=== PATIENT | female | born 1995 | race Caucasian/White ===

== ENCOUNTER → 2017-06-27 | Outpatient (CLI) | payer BC ==
--- NOTE | 2017-06-27 17:52 | US ---
EXAMINATION TYPE: US renal transplant w dop DATE OF EXAM: 06/27/2017 COMPARISON: NONE CLINICAL HISTORY: Low back pain M54.5. Lower back pain x 2 days, renal transplant 3 years ago EXAM PERFORMED: Grayscale on [place] kidneys and Doppler duplex and Grayscale imaging of the transplan juan kidney. EXAM MEASUREMENTS: [place] Right Kidney: 6.8 x 3.6 x 2.7cm [place] Left Kidney: 7.0 x 3.6 x 3.0cm Transplant Kidney: 12.0 x 5.2 x 5.8cm Location of transplanted kidney: left pelvis ANATOMY: [place] Right Kidney: atrophic, no hydro or renal masses seen at this time, inferior pole obscured by overlying bowel gas [place] Left Kidney: atrophic, no hydro or renal masses seen at this time, limited by rib shadowing Transplant Kidney: good arterial and venous flow seen, small amount of fluid seen in renal pelvis, a ppears to be extending slightly into calyces Bladder: appears wnl Bilateral Jets seen: no jets seen IMPRESSION: Mild fullness of the left renal transplant collecting system. Otherwise unremarkable study.
== END | disposition home or self-care (01) ==
LOC: RADUSWWP 16:53
PROVIDERS: ATTEND Family Medicine
DX: M54.5 Low back pain (principal); Z94.0 Kidney transplant status
CPT/HCPCS: 76776; 93976

== ENCOUNTER 2017-06-28 19:38 | Inpatient (IN) | payer BC ==
[2017-06-28] MEDS ORDERED: SODIUM CHLORIDE 0.9% 500 ML IV STA (20:44)
[2017-06-28] MEDS ORDERED: ACETAMINOPHEN TAB 500 MG TAB PO STA (20:44)
--- NOTE | 2017-06-28 21:10 | ED ---
General Adult HPI <Clark Ramos - Last Filed: 06/28/17 23:00> - General Source: patient, RN notes reviewed Mode of arrival: ambulatory Limitations: no limitations <Igor Cotton - Last Filed: 06/28/17 23:03> - General Chief complaint: Headache Stated complaint: neck pain Time Seen by Provider: 06/28/17 20:34 - History of Present Illness Initial comments: This a 22-year-old female presents emergency Department chief complaint of flank pain, back pain, fever, headache. Patient states that she is concerned that she developed left flank pain yesterday in which she saw her doctor and had lab work and ultrasound of her left kidney. 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 Patient states that was done 3 years ago at [facility]. Patient states that she developed a fever and upper back, neck pain and a headache. Patient states that she has some discomfort when she moves her head forward and back. Patient went of frontal headache at this time she did take Tylenol around 3:00 this afternoon. Patient states that she was prescribed Cipro for infection of her urine. Patient states that she does have mild sore throat but denies any ear pain, sinus congestion, cough or chest congestion. (Igor Cotton ) - Related Data Home Medications Medication Instructions Recorded Confirmed Ciprofloxacin HCl [Cipro] 500 mg PO Q12HR 06/28/17 06/28/17 Magnesium Oxide [Mag-Ox] 250 mg PO DAILY 06/28/17 06/28/17 Mycophenolate Mofetil [Cellcept] 750 mg PO BID 06/28/17 06/28/17 Tacrolimus [Prograf] 0.5 mg PO BID@0900,2100 06/28/17 06/28/17 Tacrolimus [Prograf] 2 mg PO BID@0900,2100 06/28/17 06/28/17 predniSONE 5 mg PO DAILY 06/28/17 06/28/17 Allergies Allergy/AdvReac Type Severity Reaction Status Date / Time cefprozil [From Cefzil] Allergy Rash/Hives Verified 06/28/17 20:33 Penicillins Allergy Rash/Hives Verified 06/28/17 20:33 Review of Systems ROS Other: All systems not noted in ROS Statement are negative. <lCark Ramos - Last Filed: 06/28/17 23:00> ROS Other: All systems not noted in ROS Statement are negative. <Igor Cotton - Last Filed: 06/28/17 23:03> ROS Statement: Those systems with pertinent positive or pertinent negative responses have been documented in the HPI. Past Medical History Additional Past Medical History / Comment(s): kidney transplant History of Any Multi-Drug Resistant Organisms: None Reported Additional Past Surgical History / Comment(s): Kidney transplant Past Psychological History: No Psychological Hx Reported Smoking Status: Never smoker Past Alcohol Use History: Occasional Past Drug Use History: None Reported <Igor Cotton - Last Filed: 06/28/17 23:03> General Exam Limitations: no limitations General appearance: alert, in no apparent distress Head exam: Present: atraumatic, normocephalic, normal inspection Eye exam: Present: normal appearance, PERRL, EOMI. Absent: scleral icterus, conjunctival injection, periorbital swelling ENT exam: Present: mucous membranes moist, TM's normal bilaterally, normal external ear exam. Absent: normal oropharynx (Mild erythema posterior pharynx and exudate) Neck exam: Present: normal inspection, full ROM. Absent: tenderness, meningismus, lymphadenopathy Respiratory exam: Present: normal lung sounds bilaterally. Absent: respiratory distress, wheezes, rales, rhonchi, stridor Cardiovascular Exam: Present: normal rhythm, tachycardia, normal heart sounds. Absent: systolic murmur, diastolic murmur, rubs, gallop, clicks GI/Abdominal exam: Present: soft, normal bowel sounds. Absent: distended, tenderness, guarding, rebound, rigid Back exam: Present: CVA tenderness (L) Neurological exam: Present: alert, oriented X3, CN II-XII intact Skin exam: Present: warm, dry, intact, normal color. Absent: rash <Igor Cotton - Last Filed: 06/28/17 23:03> Course <Clark Ramos - Last Filed: 06/28/17 23:00> <Igor Cotton - Last Filed: 06/28/17 23:03> Vital Signs 06/28/17 06/28/17 06/28/17 19:47 21:25 21:51 Temperature 101.5 F H 103.4 F H Pulse Rate 130 H 122 H 119 H Respiratory 20 18 16 Rate Blood Pressure 94/57 109/67 109/62 O2 Sat by Pulse 99 99 95 Oximetry - Reevaluation(s) Reevaluation #1: 06/28/17 23:00 Patient does meet sepsis criteria with urinary tract infection. Diagnosed at 2300. Patient will be started on Levaquin secondary to penicillin and cephalosporin ALLERGY. Case discussed with practitioner Miguelina, covering for Dr. bain who will admit for Dr. He. She is okay with keeping this transplant patient here. Nephrology will be consulted. (Clark Ramos) Medical Decision Making - Lab Data Result diagrams: 06/28/17 22:15 06/28/17 22:15 <Clark Ramos - Last Filed: 06/28/17 23:00> - Lab Data Result diagrams: 06/28/17 22:15 06/28/17 22:15 <Igor Cotton - Last Filed: 06/28/17 23:03> - Lab Data Lab Results 06/28/17 06/28/17 06/28/17 Range/Units 21:20 21:20 21:56 WBC (3.8-10.6) k/uL RBC (3.80-5.40) m/uL Hgb (11.4-16.0) gm/dL Hct (34.0-46.0) % MCV (80.0-100.0) fL MCH (25.0-35.0) pg MCHC (31.0-37.0) g/dL RDW (11.5-15.5) % Plt Count (150-450) k/uL Neutrophils % % Lymphocytes % % Monocytes % % Eosinophils % % Basophils % % Neutrophils # (1.3-7.7) k/uL Lymphocytes # (1.0-4.8) k/uL Monocytes # (0-1.0) k/uL Eosinophils # (0-0.7) k/uL Basophils # (0-0.2) k/uL Sodium (137-145) mmol/L Potassium (3.5-5.1) mmol/L Chloride (98-107) mmol/L Carbon Dioxide (22-30) mmol/L Anion Gap mmol/L BUN (7-17) mg/dL Creatinine (0.52-1.04) mg/dL Est GFR (MDRD) Af Amer (>60 ml/min/1.73 sqM) Est GFR (MDRD) Non-Af (>60 ml/min/1.73 sqM) Glucose (74-99) mg/dL Plasma Lactic Acid Connor 0.9 (0.7-2.0) mmol/L Calcium (8.4-10.2) mg/dL Total Bilirubin (0.2-1.3) mg/dL AST (14-36) U/L ALT (9-52) U/L Alkaline Phosphatase (38-126) U/L Total Protein (6.3-8.2) g/dL Albumin (3.5-5.0) g/dL Urine Color Yellow Urine Appearance Cloudy H (Clear) Urine pH 6.0 (5.0-8.0) Ur Specific [place] 1.021 (1.001-1.035) Urine Protein 2+ H (Negative) Urine Glucose (UA) Negative (Negative) Urine Ketones 2+ H (Negative) Urine Blood Small H (Negative) Urine Nitrite Negative (Negative) Urine Bilirubin Negative (Negative) Urine Urobilinogen <2.0 (<2.0) mg/dL Ur Leukocyte Esterase Moderate H (Negative) Urine RBC 3 (0-5) /hpf Urine WBC 19 H (0-5) /hpf Ur Squamous Epith Cells 2 (0-4) /hpf Urine Bacteria Rare H (None) /hpf Hyaline Casts 1 (0-2) /lpf Urine Mucus Rare H (None) /hpf Urine HCG, Qual (Not Detectd) Heterophile Antibody (Negative) Group A Strep Rapid Negative (Negative) 06/28/17 06/28/17 06/28/17 Range/Units 21:56 22:15 22:15 WBC 17.1 H (3.8-10.6) k/uL RBC 4.51 (3.80-5.40) m/uL Hgb 12.6 (11.4-16.0) gm/dL Hct 38.7 (34.0-46.0) % MCV 86.0 (80.0-100.0) fL MCH 27.9 (25.0-35.0) pg MCHC 32.4 (31.0-37.0) g/dL RDW 13.9 (11.5-15.5) % Plt Count 177 (150-450) k/uL Neutrophils % 90 % Lymphocytes % 3 % Monocytes % 6 % Eosinophils % 0 % Basophils % 0 % Neutrophils # 15.3 H (1.3-7.7) k/uL Lymphocytes # 0.5 L (1.0-4.8) k/uL Monocytes # 1.0 (0-1.0) k/uL Eosinophils # 0.1 (0-0.7) k/uL Basophils # 0.0 (0-0.2) k/uL Sodium 132 L (137-145) mmol/L Potassium 4.1 (3.5-5.1) mmol/L Chloride 103 (98-107) mmol/L Carbon Dioxide 20 L (22-30) mmol/L Anion Gap 9 mmol/L BUN 18 H (7-17) mg/dL Creatinine 1.30 H (0.52-1.04) mg/dL Est GFR (MDRD) Af Amer >60 (>60 ml/min/1.73 sqM) Est GFR (MDRD) Non-Af 50 (>60 ml/min/1.73 sqM) Glucose 123 H (74-99) mg/dL Plasma Lactic Acid Connor (0.7-2.0) mmol/L Calcium 8.7 (8.4-10.2) mg/dL Total Bilirubin 0.8 (0.2-1.3) mg/dL AST 13 L (14-36) U/L ALT 29 (9-52) U/L Alkaline Phosphatase 54 (38-126) U/L Total Protein 5.6 L (6.3-8.2) g/dL Albumin 3.4 L (3.5-5.0) g/dL Urine Color Urine Appearance (Clear) Urine pH (5.0-8.0) Ur Specific [place] (1.001-1.035) Urine Protein (Negative) Urine Glucose (UA) (Negative) Urine Ketones (Negative) Urine Blood (Negative) Urine Nitrite (Negative) Urine Bilirubin (Negative) Urine Urobilinogen (<2.0) mg/dL Ur Leukocyte Esterase (Negative) Urine RBC (0-5) /hpf Urine WBC (0-5) /hpf Ur Squamous Epith Cells (0-4) /hpf Urine Bacteria (None) /hpf Hyaline Casts (0-2) /lpf Urine Mucus (None) /hpf Urine HCG, Qual Not Detected (Not Detectd) Heterophile Antibody (Negative) Group A Strep Rapid (Negative) 06/28/17 Range/Units 22:15 WBC (3.8-10.6) k/uL RBC (3.80-5.40) m/uL Hgb (11.4-16.0) gm/dL Hct (34.0-46.0) % MCV (80.0-100.0) fL MCH (25.0-35.0) pg MCHC (31.0-37.0) g/dL RDW (11.5-15.5) % Plt Count (150-450) k/uL Neutrophils % % Lymphocytes % % Monocytes % % Eosinophils % % Basophils % % Neutrophils # (1.3-7.7) k/uL Lymphocytes # (1.0-4.8) k/uL Monocytes # (0-1.0) k/uL Eosinophils # (0-0.7) k/uL Basophils # (0-0.2) k/uL Sodium (137-145) mmol/L Potassium (3.5-5.1) mmol/L Chloride (98-107) mmol/L Carbon Dioxide (22-30) mmol/L Anion Gap mmol/L BUN (7-17) mg/dL Creatinine (0.52-1.04) mg/dL Est GFR (MDRD) Af Amer (>60 ml/min/1.73 sqM) Est GFR (MDRD) Non-Af (>60 ml/min/1.73 sqM) Glucose (74-99) mg/dL Plasma Lactic Acid Connor (0.7-2.0) mmol/L Calcium (8.4-10.2) mg/dL Total Bilirubin (0.2-1.3) mg/dL AST (14-36) U/L ALT (9-52) U/L Alkaline Phosphatase (38-126) U/L Total Protein (6.3-8.2) g/dL Albumin (3.5-5.0) g/dL Urine Color Urine Appearance (Clear) Urine pH (5.0-8.0) Ur Specific [place] (1.001-1.035) Urine Protein (Negative) Urine Glucose (UA) (Negative) Urine Ketones (Negative) Urine Blood (Negative) Urine Nitrite (Negative) Urine Bilirubin (Negative) Urine Urobilinogen (<2.0) mg/dL Ur Leukocyte Esterase (Negative) Urine RBC (0-5) /hpf Urine WBC (0-5) /hpf Ur Squamous Epith Cells (0-4) /hpf Urine Bacteria (None) /hpf Hyaline Casts (0-2) /lpf Urine Mucus (None) /hpf Urine HCG, Qual (Not Detectd) Heterophile Antibody Negative (Negative) Group A Strep Rapid (Negative) Disposition <Clark Ramos - Last Filed: 06/28/17 23:00> <Igor Cotton - Last Filed: 06/28/17 23:03> Clinical Impression: Pyelonephritis, Fever, Renal transplant recipient Disposition: ADMITTED IP TO THIS [facility] Condition: Fair Referrals: Jeanette He MD [Primary Care Provider] - 1-2 days
--- NOTE | 2017-06-28 21:46 | XR ---
EXAMINATION TYPE: XR chest 2V DATE OF EXAM: 06/28/2017 COMPARISON: NONE HISTORY: Fever TECHNIQUE: Frontal and lateral views of the chest are obtained. FINDINGS: Heart and mediastinum are normal. Lungs are clear. Diaphragm is normal. Bony thorax appear s normal. IMPRESSION: Normal chest
[2017-06-28 22:17] LABS: Appearance,Urine Cloudy (Clear); Bacteria,Urine Rare /hpf; Bilirubin,Urine Negative (Negative); Glucose,Urine (UA) Negative (Negative); Ketones,Urine 2+ (Negative); Leukocyte Esterase,Urine Moderate (Negative); Mucus,Urine Rare /hpf; Nitrite,Urine Negative (Negative); Particle Count 10121; Protein,Urine 2+ (Negative); RBC,Urine 3 /hpf (0-5); Specific Gravity,Urine 1.021 (1.001-1.035); Squamous Epithelial Cell,Urine 2 /hpf (0-4); UA Billing (MACRO vs. MICRO) MICRO; Urobilinogen,Urine <2.0 mg/dL (<2.0); WBC,Urine 19 /hpf (0-5)
[2017-06-28 22:34] LABS: Basophils % (A) 0 %; CHCM 33.8; Eosinophils # (A) 0.1 k/uL (0-0.7); Eosinophils % (A) 0 %; HCT 38.7 % (34.0-46.0); HDW 2.72; HGB 12.6 gm/dL (11.4-16.0); Luc # (Auto) 0.24; Luc % (Auto) 1; Lymphocytes # (A) 0.5 k/uL (1.0-4.8); Lymphocytes % (A) 3 %; MCH 27.9 pg (25.0-35.0); MCHC 32.4 g/dL (31.0-37.0); Mean Platelet Volume 7.3; Monocytes % (A) 6 %; Neutrophils # (A) 15.3 k/uL (1.3-7.7); Neutrophils % (A) 90 %; RBC 4.51 m/uL (3.80-5.40); RDW 13.9 % (11.5-15.5); WBC 17.1 k/uL (3.8-10.6); WBC (Perox) 17.59
[2017-06-28 22:43] LABS: ALT 29 U/L (9-52); AST 13 U/L (14-36); Alkaline Phosphatase 54 U/L (38-126); Anion Gap 9 mmol/L; Blood Urea Nitrogen 18 mg/dL (7-17); Calcium 8.7 mg/dL (8.4-10.2); Carbon Dioxide 20 mmol/L (22-30); Chloride 103 mmol/L (98-107); Glucose 123 mg/dL (74-99); Non-African American GFR(MDRD) 50 (>60 ml/min/1.73 sqM); Potassium 4.1 mmol/L (3.5-5.1); Sodium 132 mmol/L (137-145); Total Bilirubin 0.8 mg/dL (0.2-1.3); Total Protein 5.6 g/dL (6.3-8.2)
[2017-06-28] MEDS ORDERED: LEVOFLOXACIN 750MG-D5W PMX 750 MG in DEXTROSE/WATER 1 150ML.BAG IVPB STA (23:02)
[2017-06-28] MEDS ORDERED: NALOXONE 0.4 MG/ML 1 ML VIAL IV PRN (23:04)
[2017-06-28] MEDS ORDERED: SODIUM CHLORIDE 0.9% 1,000 ML IV SCH (23:15)
[2017-06-29 01:24] VITALS: BMI 32.3
[2017-06-29] MEDS: ACETAMINOPHEN TAB 325 MG TAB PO PRN ×3 (04:00→19:51)
[2017-06-29] MEDS: ENOXAPARIN 40 MG/0.4 ML SYRINGE SQ SCH (08:56)
[2017-06-29] MEDS: TACROLIMUS 0.5 MG CAP PO SCH ×2 (08:56→19:56)
[2017-06-29] MEDS: TACROLIMUS 1 MG CAP PO SCH ×2 (08:56→19:57)
[2017-06-29] MEDS: MYCOPHENOLATE MOFETIL 250 MG CAP PO SCH ×2 (08:57→19:56)
[2017-06-29] MEDS ORDERED: predniSONE 5 MG TAB PO SCH (09:00)
[2017-06-29] MEDS: MAGNESIUM OXIDE 400 MG TAB PO SCH (11:24)
[2017-06-29] MEDS: SODIUM CHLORIDE 0.9% 1,000 ML IV SCH ×2 (12:47→17:39)
--- NOTE | 2017-06-29 13:11 | CONS ---
REASON FOR CONSULTATION: History of renal transplant. HISTORY OF PRESENT ILLNESS: The patient is a 22-year-old female with history of renal failure secondary to ( ) syndrome status post living unrelated renal transplant in 2013 and transplant was at [facility]. The patient follows at [facility] and with Dr. Cheema out of town. She used to follow with Dr. Bauman ). The patient was admitted to the hospital with complaints of left flank pain. She stated that she may have noticed some discomfort in her kidney too. The patient had some fever. No cough. No chest pains. Ultrasound of the kidney done on 06/27/2017 showed prominent left renal transplant collecting system. No stones were noted. Her UA shows blood protein and WBC of 19. Urine culture currently pending. The patient has been started on Levaquin. PAST MEDICAL HISTORY: Renal failure, good ( ) syndrome. SOCIAL HISTORY: Negative for history of smoking drug abuse or alcohol use. REVIEW OF SYSTEMS: As per HPI. Other systems negative. Medications at home prior to admission include: 1. Prograf. 2. CellCept. 3. Magnesium. 4. Recently the patient was on Cipro. 5. She also takes Prednisone. ALLERGIES: ( ) PENICILLINS. On examination, the patient is currently comfortable, awake, alert and oriented times three. She is not in any acute distress. Temp of 101.9, heart rate 106 per minute, blood pressure 147/72. HEENT: Atraumatic, Normocephalic. PERRLA. JVD is not elevated. Lymph nodes are not palpable. Thyroid is not enlarged. Examination of the heart S1, S2. Examination of the lungs bilateral breath sounds are heard. Abdomen soft, nontender. ( ) is nontender. Examination of the lower extremities shows no edema. CUSTOMER SALES DISTRIBUTOR: Gross intact. Labs show sodium 132, potassium 4.1, serum creatinine 1.3, BUN 18, hemoglobin 12.6, UA shows 2+ protein, 2+ ketones, small blood, WBC 19, urine cultures currently pending. ASSESSMENT: 1. Pyuria rule out urinary tract infection in a transplant patient. There was prominence of the collecting system on the transplant kidney on the ultrasound done on 06/27/2017. The patient states she is feeling better. She is maintained on IV antibiotics which are to continue. We will follow-up on the urine culture. Prograf level will also be ordered. The patient has been on Cipro prior to admission and currently she is on Levaquin. The dose may need to be adjusted for Prograf. We will likely repeat another ultrasound by tomorrow. If there is any further changes, the patient may need further urological evaluation and may need to be transferred to [facility]. 2. Status post living unrelated renal transplant at [facility] in 2013 and maintained on Prograf, CellCept and Prednisone. PLAN: Start IV fluids. May continue Levaquin. Check Prograf level. Follow-up on urine cultures. Thank you for this consultation. I will continue to follow the patient with you during this hospitalization. GINA
--- NOTE | 2017-06-29 14:00 | P.HPIM ---
History of Present Illness H&P Date: 06/29/17 Chief Complaint: Back pain History of present complaint: This is a very pleasant 22-year-old patient, who had a living donor nonrelated kidney transplant at [facility] 3 years ago for Goodpasture's syndrome. Patient follows with our transplant surgeon Dr. Samaniego used to [place]. 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 Denies any other medical conditions. Presents with 2 days of left lower back pain but increasing urinary frequency a fever up to 101 nausea strong-appearing urine admitted for this same. No obvious pain over the transplanted kidney. Appetite had gone down. Sister and aunt are present at the bedside. 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 EYES: Pupils equal. Conjunctiva normal. HEENT: External appearance of nose and ears normal, oral cavity grossly normal. NECK: JVD not raised; masses not palpable. HEART: First and second heart sounds are normal; no edema. LUNGS: Respiratory rate normal; clear to auscultation. ABDOMEN: Soft, nontender over the transplant site, minimal tenderness in the left renal angle, liver spleen not palpable, no masses palpable. LYMPHATICS: No lymph nodes palpable in the axilla and neck. PSYCH: Alert and oriented x3; mood and affect normal. NEUROLOGICAL: Cranial nerves grossly intact; no facial asymmetry, power and sensation grossly intact. Investigations: White count 7.1, he will be drawn 0.6, sodium 132, BUN 18, creatinine 1.30, UA positive Assessment: Acute severe UTI with sepsis present on admission possibly related cystitis -Renal transplantation from underlying Goodpasture's syndrome 3 years ago -Immunosuppressed state from immunosuppressants Plan: -Nephrology was consulted. We'll also consult ID. Home medications are resumed. Care was discussed with the patient. IV fluids and place. We'll give stress doses of steroids in the form of Cortef. Care discussed with the patient and family the bedside. Past Medical History Additional Past Medical History / Comment(s): Goodpasture's Syndrome/ kidney transplant History of Any Multi-Drug Resistant Organisms: None Reported Additional Past Surgical History / Comment(s): Kidney transplant Past Anesthesia/Blood Transfusion Reactions: No Reported Reaction Past Psychological History: No Psychological Hx Reported Smoking Status: Never smoker Past Alcohol Use History: Occasional Past Drug Use History: None Reported - Past Family History Mother Family Medical History: No Reported History Father Family Medical History: Hypertension Medications and Allergies Home Medications Medication Instructions Recorded Confirmed Type Ciprofloxacin HCl [Cipro] 500 mg PO Q12HR 06/28/17 06/28/17 History Magnesium Oxide [Mag-Ox] 250 mg PO DAILY 06/28/17 06/28/17 History Mycophenolate Mofetil [Cellcept] 750 mg PO BID 06/28/17 06/28/17 History Tacrolimus [Prograf] 0.5 mg PO BID@0900,2100 06/28/17 06/28/17 History Tacrolimus [Prograf] 2 mg PO BID@0900,2100 06/28/17 06/28/17 History predniSONE 5 mg PO DAILY 06/28/17 06/28/17 History Allergies Allergy/AdvReac Type Severity Reaction Status Date / Time cefprozil [From Cefzil] Allergy Rash/Hives Verified 06/28/17 20:33 Penicillins Allergy Rash/Hives Verified 06/28/17 20:33 Results CBC & Chem 7: 06/28/17 22:15 06/28/17 22:15
[2017-06-29] MEDS ORDERED: predniSONE 20 MG TAB PO SCH (21:00)
[2017-06-29] MEDS: LEVOFLOXACIN 750MG-D5W PMX 750 MG in DEXTROSE/WATER 1 150ML.BAG IVPB SCH (22:29)
[2017-06-30] MEDS: SODIUM CHLORIDE 0.9% 1,000 ML IV SCH (03:39)
[2017-06-30 06:54] LABS: Basophils % (A) 0 %; CH 28.7; CHCM 33.1; Eosinophils % (A) 0 %; HCT 37.1 % (34.0-46.0); HDW 2.74; HGB 11.9 gm/dL (11.4-16.0); Luc # (Auto) 0.27; Luc % (Auto) 3; Lymphocytes # (A) 0.6 k/uL (1.0-4.8); Lymphocytes % (A) 6 %; MCHC 32.2 g/dL (31.0-37.0); MCV 87.1 fL (80.0-100.0); Mean Platelet Volume 7.8; Monocytes # (A) 0.7 k/uL (0-1.0); Monocytes % (A) 7 %; Neutrophils # (A) 8.4 k/uL (1.3-7.7); Neutrophils % (A) 85 %; RBC 4.26 m/uL (3.80-5.40); RDW 13.9 % (11.5-15.5); WBC (Perox) 10.75
[2017-06-30 07:17] LABS: Anion Gap 6 mmol/L; Blood Urea Nitrogen 11 mg/dL (7-17); Calcium 8.5 mg/dL (8.4-10.2); Carbon Dioxide 24 mmol/L (22-30); Chloride 108 mmol/L (98-107); Glucose 92 mg/dL (74-99); Non-African American GFR(MDRD) >60 (>60 ml/min/1.73 sqM); Potassium 4.4 mmol/L (3.5-5.1); Sodium 138 mmol/L (137-145)
[2017-06-30] MEDS ORDERED: ACETAMINOPHEN TAB 500 MG TAB PO PRN (08:34)
[2017-06-30] MEDS ORDERED: predniSONE 20 MG TAB PO SCH (09:00)
[2017-06-30] MEDS: ENOXAPARIN 40 MG/0.4 ML SYRINGE SQ SCH (09:05)
[2017-06-30] MEDS: MYCOPHENOLATE MOFETIL 250 MG CAP PO SCH ×2 (09:08→20:57)
[2017-06-30] MEDS: TACROLIMUS 0.5 MG CAP PO SCH ×2 (09:08→20:56)
[2017-06-30] MEDS: TACROLIMUS 1 MG CAP PO SCH ×2 (09:08→20:56)
--- NOTE | 2017-06-30 09:27 | PN ---
The patient is seen for follow-up for post transplant care. The patient was admitted to the hospital with fever and left flank pain. She is currently maintained on IV Levaquin for urinary tract infection. The patient has been on Cipro for about three doses prior to admission. Her urine culture has not grown anything yet. However, clinically the patient has improved. On examination blood pressure is 122/78. Heart rate is 100 per minute. She is afebrile. Examination of the heart S1, S2. Examination of the lungs bilateral breath sounds are heard. Abdomen is soft. Nontender. Examination of the lower extremities shows no significant edema. LPN CMA exam grossly intact. Labs shows sodium 130. Potassium 4.4, serum creatinine 1.08. Hemoglobin 11.9. ASSESSMENT: 1. Acute kidney injury, secondary to urinary tract infection currently improved. 2. Status post living unrelated renal transplant for good pasture syndrome in 2013 at [facility] currently maintained on Prograf, CellCept and Prednisone. Prednisone was increased to 40 mg b.i.d. I will decrease the dose to 40 mg daily. Currently the patient is fairly hemodynamically stable. The patient will need rapid taper of her Prednisone as an outpatient. Prograf level has been ordered since the patient has been on the Quinolones. It is pending so far. There was dilation noted in the transplant kidney. A repeat ultrasound was ordered. 3. Urinary tract infection, currently maintained on IV antibiotics. Urine culture does not show any growth thus far as the patient was already on Cipro prior to admission. PLAN: Decrease Prednisone to 40 mg daily. Continue IV fluids. Recommend the patient to stay in the hospital for at least one more day. 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 MTDD
--- NOTE | 2017-06-30 10:19 | US ---
EXAMINATION TYPE: US renal transplant w dop DATE OF EXAM: 06/30/2017 COMPARISON: 06/27/2017 CLINICAL HISTORY: infection. Lower back pain, kidney infection, renal transplant 03/17 EXAM PERFORMED: Grayscale on [place] kidneys and Doppler duplex and Grayscale imaging of the transplan juan kidney. EXAM MEASUREMENTS: [place] Right Kidney: 6.5 x 2.3 x 2.3cm [place] Left Kidney: 6.4 x 2.8 x 2.6cm Transplant Kidney: 12.6 x 5.5 x 5.6cm Location of transplanted kidney: LLQ ANATOMY: [place] Right Kidney: atrophic [place] Left Kidney: atrophic Transplant Kidney: arterial and venous flow documented. fullness to collecting system Bladder: appears wnl Bilateral Jets seen: no Incidental finding: spleen = 13.8cm system with borderline splenomegaly. IMPRESSION: There persists mild fullness to the renal pelvis suggestive of mild hydronephrosis within the renal t ransplant unchanged from previous exam.
[2017-06-30] MEDS: MAGNESIUM OXIDE 400 MG TAB PO SCH (12:25)
--- NOTE | 2017-06-30 16:01 | P.PN ---
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 Presented with 2 days of left lower back pain increasing urinary frequency and a fever up to 101 nausea strong-appearing urine and was admitted for the same. INTERVAL HISTORY: 06/30/2017: Patient seen in follow-up today, sitting up in a recliner at the bedside appears very comfortable, no acute complaints. States her back pain is improved. Levaquin continues. Last febrile episode was at 7:30 PM on 2016. Follow-up ultrasound pending. Tolerating her diet, ambulatory in the room and hallway, last BM 06/29/2017. REVIEW OF SYSTEMS: Done for constitutional ,cardiovascular, GI, pulmonary, with relevant findings as above. CURRENT MEDICATIONS Levofloxacin, CellCept, prednisone, Prograf, PHYSICAL EXAM VITAL SIGNS: Temperature 98.2, pulse 100, respirations 16, blood pressure 122/78, oxygen saturation 98% on room air. GENERAL APPEARANCE: Lying in bed, not in distress. EYES: Pupils equal. Conjunctiva normal. NECK: JVD not raised. Mass not palpable. RESPIRATORY: Respiratory effort normal. Lungs clear to auscultation. CARDIOVASCULAR: First and second sounds normal. No edema. ABDOMEN: Soft. Nontender over the transplant site, minimal tenderness in the left renal angle, Liver and spleen not palpable. No tenderness. No mass palpable. PSYCHIATRY: Alert and oriented x3. Mood and affect normal. INVESTIGATIONS: White blood cell count 10.0, chloride 108, creatinine 1.08 Urine culture: Skin and genital guillermo Throat culture: In process Blood culture: No growth after 24 hours. ASSESSMENT: -Acute severe UTI with sepsis present on admission possibly related cystitis, improving -Renal transplantation from underlying Goodpasture's syndrome 3 years ago -Immunosuppressed state from immunosuppressants PLAN: Patient febrile last night we'll hold patient another day continue Levaquin and see how she appears tomorrow for possible discharge. Discussion had at the bedside with patient and mother and they are in agreement with the plan of care. 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 Barba <Sarath Barba - Last Filed: 06/30/17 17:28> Progress Note - Text Attending note. Date of service-06/30/2017 This patient was seen and examined by me . Discussed the patient with my nurse practitioner Ms. Chung. Admitted with acute UTI and possible cystitis. Did spike a fever yesterday evening. Overall feels better. Decreased urine symptoms. Eating better. On examination: Abdomen-nontender soft Investigations: White count 10, cultures pending Assessment and plan: Acute UTI with sepsis possibly cystitis present admission responding well to antibiotics. Given the fever yesterday evening will watch her 24 hours. Continue with IV Levaquin.
[2017-06-30 21:02] VITALS: RESP 16
[2017-06-30] MEDS: LEVOFLOXACIN 750MG-D5W PMX 750 MG in DEXTROSE/WATER 1 150ML.BAG IVPB SCH (23:07)
[2017-07-01] MEDS: SODIUM CHLORIDE 0.9% 1,000 ML IV SCH (05:50)
[2017-07-01 07:29] LABS: Basophils % (A) 0 %; CH 28.8; CHCM 33.1; Eosinophils % (A) 1 %; HCT 36.1 % (34.0-46.0); HDW 2.76; HGB 11.6 gm/dL (11.4-16.0); Luc # (Auto) 0.21; Luc % (Auto) 3; Lymphocytes # (A) 1.2 k/uL (1.0-4.8); Lymphocytes % (A) 16 %; MCH 28.1 pg (25.0-35.0); MCHC 32.2 g/dL (31.0-37.0); MCV 87.4 fL (80.0-100.0); Mean Platelet Volume 7.9; Monocytes # (A) 0.4 k/uL (0-1.0); Monocytes % (A) 6 %; Neutrophils # (A) 5.7 k/uL (1.3-7.7); Neutrophils % (A) 75 %; RBC 4.13 m/uL (3.80-5.40); RDW 14.1 % (11.5-15.5); WBC 7.6 k/uL (3.8-10.6); WBC (Perox) 8.01
[2017-07-01 07:49] LABS: Anion Gap 9 mmol/L; Blood Urea Nitrogen 12 mg/dL (7-17); Calcium 8.6 mg/dL (8.4-10.2); Carbon Dioxide 21 mmol/L (22-30); Chloride 110 mmol/L (98-107); Glucose 87 mg/dL (74-99); Non-African American GFR(MDRD) >60 (>60 ml/min/1.73 sqM); Potassium 4.2 mmol/L (3.5-5.1); Sodium 140 mmol/L (137-145)
[2017-07-01 08:53] VITALS: BP 129/84; PULSE 88; TEMP 98.3
[2017-07-01] MEDS ORDERED: predniSONE 20 MG TAB PO SCH (11:00)
--- NOTE | 2017-07-01 11:19 | PN ---
Patient is seen for followup for urinary tract infection in a transplant patient. Currently, the patient is doing well. She has been afebrile. She wants to go home. There are no urinary symptoms. On examination, blood pressure is 129/84, heart rate 88 per minute. She is afebrile. EXAMINATION OF THE HEART: S1 and S ( ). Examination shows the patient is euvolemic with no evidence of edema in her lower extremities. Labs show sodium 140, potassium 4.2. Serum creatinine 0.98. Hemoglobin 11.6 grams/dL. ASSESSMENT: 1. Acute kidney injury associated with urinary infection and some degree of hypovolemia, currently improved. 2. Urinary tract infection in a transplant patient with urine cultures not growing anything as patient had been on antibiotics prior to her admission. 3. Status post living unrelated renal transplant at [facility], maintained on Prograf, CellCept and prednisone, which was increased. 4. Prominent collecting system in the transplant kidney. which is persistent on the repeat ultrasound. PLAN: Patient can be discharged home. She will continue with the Levaquin. Prograf level is still pending. We will need to adjust the dose of the tacrolimus depending on the level since patient will be discharged on quinolones which can affect the Prograf level. She should follow up transplant post discharge. The steroids will also be tapered down rapidly to her usual dose of 5 mg daily over the next 2 to 3 days. MTDD
[2017-07-01] MEDS: ENOXAPARIN 40 MG/0.4 ML SYRINGE SQ SCH (11:20)
[2017-07-01] MEDS: MYCOPHENOLATE MOFETIL 250 MG CAP PO SCH (11:20)
[2017-07-01] MEDS: TACROLIMUS 0.5 MG CAP PO SCH (11:20)
[2017-07-01] MEDS: TACROLIMUS 1 MG CAP PO SCH (11:20)
--- NOTE | 2017-07-01 20:30 | P.DS ---
<Miguelina Chung - Last Filed: 07/01/17 20:23> Providers Date of admission: 06/28/17 22:59 Expected date of discharge: 07/01/17 Attending physician: Sarath Barba Consults: 06/28/17 23:04 Consult Physician Stat Consulting Provider: Alessandro Wise Consult Reason/Comments: Renal transplant Do you want consulting provider notified?: Yes Primary care physician: Jeanette He Hospital Course: FINAL DIAGNOSES: -Acute severe UTI with sepsis present on admission possibly related cystitis -Renal transplantation from underlying Goodpasture's syndrome 3 years ago -Immunosuppressed state from immunosuppressants HOSPTIAL COURSE: 22-year-old female history of living donor nonrelated kidney transplant [facility] 3 years ago secondary to Goodpasture syndrome, presented with 2 days of left lower back pain increasing urinary frequency and a fever up to 101 nausea and strong-appearing urine was admitted for a severe urinary tract infection. IV Levaquin initiated in the emergency department and was continued for the course of the hospital stay, patient's symptoms improved and was febrile for one episode of 101.0. Urinary symptoms have since dissipated, patient up and about, tolerating her diet, last BM 07/01/2017. Overall condition is stable patient is ready for discharge. 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 Barba DISPOSITION: Home to the care of her family Plan - Discharge Summary New Discharge Prescriptions: New Levofloxacin [Levaquin] 500 mg PO DAILY #5 tab Continue predniSONE 5 mg PO DAILY Tacrolimus [Prograf] 2 mg PO BID@0900,2100 Mycophenolate Mofetil [Cellcept] 750 mg PO BID Tacrolimus [Prograf] 0.5 mg PO BID@0900,2100 Magnesium Oxide [Mag-Ox] 250 mg PO DAILY Discontinued Ciprofloxacin HCl [Cipro] 500 mg PO Q12HR Discharge Medication List Magnesium Oxide [Mag-Ox] 250 mg PO DAILY 06/28/17 [History] Mycophenolate Mofetil [Cellcept] 750 mg PO BID 06/28/17 [History] Tacrolimus [Prograf] 0.5 mg PO BID@899,209906/28/17 [History] Tacrolimus [Prograf] 2 mg PO BID@899,209906/28/17 [History] predniSONE 5 mg PO DAILY 06/28/17 [History] Levofloxacin [Levaquin] 500 mg PO DAILY #5 tab 07/01/17 [Rx] Follow up Appointment(s)/Referral(s): Dr Aden [Other] - 1 Week ( ) Dr Deni [Other] - 1 Week Jeanette He MD [Primary Care Provider] - 1-2 days Ambulatory/Diagnostic Orders: Basic Metabolic Panel [LAB.AMB] Time Frame: 3 Days, Location: Determined By Patient Complete Blood Count w/diff [LAB.AMB] Time Frame: 3 Days, Location: Determined By Patient Patient Instructions/Handouts: Urinary Tract Infection in Women (DC) Activity/Diet/Wound Care/Special Instructions: Continue your home medications 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 Take your antibiotic today and complete the dose as prescribed If you have returning or worsening symptoms, call your doctor or return to ER Discharge/Stand Alone Forms: Work/School Release / Restrict Discharge Disposition: HOME SELF-CARE <JamesonSarath - Last Filed: 07/02/17 20:23> Hospital Course: Attending note. Date of service-07/01/2017 This patient was seen and examined by me . Discussed the patient with my nurse practitioner Ms. Chung. Feeling much better. Eating. No fever. No abdominal or flank pain. No urinary symptoms. On examination: Abdomen-soft nontender. Patient cheerful Investigations: Urine culture negative Assessment and plan: Acute UTI with cystitis causing sepsis on presentation now currently much improved. Care was discussed with the patient. Discharge home on antibiotics.
== END 2017-07-01 12:47 | disposition home or self-care (01) | DRG 872 ==
LOC: EC 19:38 → 5MS5E 22:59 → 6PED 06-29 15:20
PROVIDERS: ADMIT Hospitalist; ATTEND Hospitalist
DX: A41.9 Sepsis, unspecified organism (principal); N17.9 Acute kidney failure, unspecified; M31.0 Hypersensitivity angiitis; Z94.0 Kidney transplant status; N30.90 Cystitis, unspecified without hematuria; E86.1 Hypovolemia; Z79.52 Long term (current) use of systemic steroids; Z79.899 Other long term (current) drug therapy
CPT/HCPCS: 36415; 71020; 76776; 80048; 80053; 80197; 81001; 81025; 83605; 85025; 86308; 87040; 87081; 87086; 87430

== ENCOUNTER 2018-03-08 00:12 | Emergency (ER) | payer BC ==
[2018-03-08] MEDS ORDERED: SODIUM CHLORIDE 0.9% 1,000 ML IV ONE (00:38)
--- NOTE | 2018-03-08 00:40 | ED ---
General Adult HPI - General Chief complaint: Headache Stated complaint: Headache, Fever Time Seen by Provider: 03/08/18 00:26 Source: patient Mode of arrival: ambulatory Limitations: no limitations - History of Present Illness Initial comments: This patient is a 22-year-old woman, status post renal transplant secondary to Goodpasture's Syndrome, who presents with concern that she may have urinary tract infection. She states that she is feeling similar to the last time (06/20 ) that she had a urinary tract infection. She states that over the past day or so she has been having very mild head discomfort, and then over the course of the past evening she developed right flank pain, fever, and tachycardia. The patient was triaged and has complaint of headache, but she states this is actually the mildest of the constellation of symptoms she is having. The patient is not having any associated neck stiffness or discomfort. She is not having any neurologic symptoms. The patient states she is more concerned by the right flank pain and the fever. -: hour(s) Location: back Quality: aching Consistency: constant Improves with: none Worsens with: none - Related Data Home Medications Medication Instructions Recorded Confirmed Magnesium Oxide [Mag-Ox] 250 mg PO DAILY 06/28/17 03/08/18 Mycophenolate Mofetil [Cellcept] 750 mg PO BID 06/28/17 03/08/18 Tacrolimus [Prograf] 0.5 mg PO BID@0900,2100 06/28/17 03/08/18 Tacrolimus [Prograf] 2 mg PO BID@0900,2100 06/28/17 03/08/18 predniSONE 5 mg PO DAILY 06/28/17 03/08/18 Cholecalciferol [Vitamin D3] 1,000 unit PO DAILY 03/08/18 03/08/18 Previous Rx's Medication Instructions Recorded Sulfamethox-Tmp 800-160Mg [Bactrim 1 each PO Q12HR #6 tab 03/08/18 Ds] Allergies Allergy/AdvReac Type Severity Reaction Status Date / Time cefprozil [From Cefzil] Allergy Rash/Hives Verified 06/28/17 20:33 Penicillins Allergy Rash/Hives Verified 06/28/17 20:33 Review of Systems ROS Statement: Those systems with pertinent positive or pertinent negative responses have been documented in the HPI. ROS Other: All systems not noted in ROS Statement are negative. Constitutional: Reports: fever, chills Eyes: Denies: eye pain, vision change ENT: Denies: ear pain, congestion Respiratory: Denies: cough, dyspnea, wheezes, hemoptysis Cardiovascular: Denies: chest pain, edema, syncope Gastrointestinal: Reports: as per HPI, abdominal pain (Right flank). Denies: nausea, vomiting, diarrhea, constipation Genitourinary: Denies: dysuria, hematuria Musculoskeletal: Denies: back pain Skin: Denies: rash Neurological: Denies: headache, weakness, numbness Past Medical History Additional Past Medical History / Comment(s): Goodpasture's Syndrome/ kidney transplant History of Any Multi-Drug Resistant Organisms: None Reported Additional Past Surgical History / Comment(s): Kidney transplant Past Anesthesia/Blood Transfusion Reactions: No Reported Reaction Past Psychological History: No Psychological Hx Reported Smoking Status: Never smoker Past Alcohol Use History: Rare Past Drug Use History: None Reported - Past Family History Mother Family Medical History: No Reported History Father Family Medical History: Hypertension General Exam Limitations: no limitations General appearance: alert, in no apparent distress Head exam: Present: atraumatic, normocephalic Eye exam: Present: normal appearance, PERRL, EOMI. Absent: scleral icterus, conjunctival injection, nystagmus ENT exam: Present: normal oropharynx, mucous membranes moist Neck exam: Present: normal inspection, full ROM. Absent: meningismus Respiratory exam: Present: normal lung sounds bilaterally. Absent: respiratory distress, wheezes, rales, rhonchi, stridor Cardiovascular Exam: Present: normal rhythm, tachycardia (Rate proximally 120 at my exam), normal heart sounds. Absent: systolic murmur, diastolic murmur, rubs, gallop GI/Abdominal exam: Present: soft, mass (Fullness in the left abdomen consistent with renal transplant). Absent: tenderness, guarding, rebound, rigid Extremities exam: Present: normal inspection, normal capillary refill. Absent: pedal edema, calf tenderness Back exam: Present: normal inspection. Absent: CVA tenderness (R), CVA tenderness (L) Neurological exam: Present: alert Skin exam: Present: warm, dry, intact, normal color. Absent: rash Course Vital Signs 03/08/18 03/08/18 00:19 02:52 Temperature 101.2 F H 100.3 F H Pulse Rate 127 H 88 Respiratory 20 16 Rate Blood Pressure 133/80 133/78 O2 Sat by Pulse 97 99 Oximetry Medical Decision Making - Lab Data Result diagrams: 03/08/18 00:50 03/08/18 00:50 Lab Results 03/08/18 03/08/18 03/08/18 Range/Units 00:50 00:50 00:50 WBC 9.6 (3.8-10.6) k/uL RBC 4.89 (3.80-5.40) m/uL Hgb 13.5 (11.4-16.0) gm/dL Hct 40.0 (34.0-46.0) % MCV 81.9 (80.0-100.0) fL MCH 27.7 (25.0-35.0) pg MCHC 33.8 (31.0-37.0) g/dL RDW 12.8 (11.5-15.5) % Plt Count 246 (150-450) k/uL Neutrophils % 84 % Lymphocytes % 7 % Monocytes % 8 % Eosinophils % 1 % Basophils % 0 % Neutrophils # 8.1 H (1.3-7.7) k/uL Lymphocytes # 0.6 L (1.0-4.8) k/uL Monocytes # 0.7 (0-1.0) k/uL Eosinophils # 0.1 (0-0.7) k/uL Basophils # 0.0 (0-0.2) k/uL Sodium 140 (137-145) mmol/L Potassium 3.9 (3.5-5.1) mmol/L Chloride 103 (98-107) mmol/L Carbon Dioxide 22 (22-30) mmol/L Anion Gap 15 mmol/L BUN 22 H (7-17) mg/dL Creatinine 1.10 H (0.52-1.04) mg/dL Est GFR (CKD-EPI)AfAm 81 (>60 ml/min/1.73 sqM) Est GFR (CKD-EPI)NonAf 71 (>60 ml/min/1.73 sqM) Glucose 109 H (74-99) mg/dL Plasma Lactic Acid Connor <0.5 L (0.7-2.0) mmol/L Calcium 9.5 (8.4-10.2) mg/dL Magnesium 1.5 L (1.6-2.3) mg/dL Total Bilirubin 0.7 (0.2-1.3) mg/dL AST 21 (14-36) U/L ALT 25 (9-52) U/L Alkaline Phosphatase 51 (38-126) U/L Total Protein 6.4 (6.3-8.2) g/dL Albumin 4.3 (3.5-5.0) g/dL Urine Color Urine Appearance (Clear) Urine pH (5.0-8.0) Ur Specific [place] (1.001-1.035) Urine Protein (Negative) Urine Glucose (UA) (Negative) Urine Ketones (Negative) Urine Blood (Negative) Urine Nitrite (Negative) Urine Bilirubin (Negative) Urine Urobilinogen (<2.0) mg/dL Ur Leukocyte Esterase (Negative) Urine RBC (0-5) /hpf Urine WBC (0-5) /hpf Ur Squamous Epith Cells (0-4) /hpf Urine Bacteria (None) /hpf Hyaline Casts (0-2) /lpf Urine Mucus (None) /hpf Urine HCG, Qual (Not Detectd) Influenza Type A RNA (Not Detectd) Influenza Type B (PCR) (Not Detectd) Group A Strep Rapid (Negative) 03/08/18 03/08/18 03/08/18 Range/Units 00:50 00:50 01:35 WBC (3.8-10.6) k/uL RBC (3.80-5.40) m/uL Hgb (11.4-16.0) gm/dL Hct (34.0-46.0) % MCV (80.0-100.0) fL MCH (25.0-35.0) pg MCHC (31.0-37.0) g/dL RDW (11.5-15.5) % Plt Count (150-450) k/uL Neutrophils % % Lymphocytes % % Monocytes % % Eosinophils % % Basophils % % Neutrophils # (1.3-7.7) k/uL Lymphocytes # (1.0-4.8) k/uL Monocytes # (0-1.0) k/uL Eosinophils # (0-0.7) k/uL Basophils # (0-0.2) k/uL Sodium (137-145) mmol/L Potassium (3.5-5.1) mmol/L Chloride (98-107) mmol/L Carbon Dioxide (22-30) mmol/L Anion Gap mmol/L BUN (7-17) mg/dL Creatinine (0.52-1.04) mg/dL Est GFR (CKD-EPI)AfAm (>60 ml/min/1.73 sqM) Est GFR (CKD-EPI)NonAf (>60 ml/min/1.73 sqM) Glucose (74-99) mg/dL Plasma Lactic Acid Connor (0.7-2.0) mmol/L Calcium (8.4-10.2) mg/dL Magnesium (1.6-2.3) mg/dL Total Bilirubin (0.2-1.3) mg/dL AST (14-36) U/L ALT (9-52) U/L Alkaline Phosphatase (38-126) U/L Total Protein (6.3-8.2) g/dL Albumin (3.5-5.0) g/dL Urine Color Yellow Urine Appearance Clear (Clear) Urine pH 6.0 (5.0-8.0) Ur Specific [place] 1.027 (1.001-1.035) Urine Protein 1+ H (Negative) Urine Glucose (UA) Negative (Negative) Urine Ketones Trace H (Negative) Urine Blood Negative (Negative) Urine Nitrite Negative (Negative) Urine Bilirubin Negative (Negative) Urine Urobilinogen <2.0 (<2.0) mg/dL Ur Leukocyte Esterase Trace H (Negative) Urine RBC 2 (0-5) /hpf Urine WBC 2 (0-5) /hpf Ur Squamous Epith Cells 5 H (0-4) /hpf Urine Bacteria Many H (None) /hpf Hyaline Casts 1 (0-2) /lpf Urine Mucus Rare H (None) /hpf Urine HCG, Qual Not Detected (Not Detectd) Influenza Type A RNA Not Detected (Not Detectd) Influenza Type B (PCR) Not Detected (Not Detectd) Group A Strep Rapid (Negative) 03/08/18 Range/Units 01:35 WBC (3.8-10.6) k/uL RBC (3.80-5.40) m/uL Hgb (11.4-16.0) gm/dL Hct (34.0-46.0) % MCV (80.0-100.0) fL MCH (25.0-35.0) pg MCHC (31.0-37.0) g/dL RDW (11.5-15.5) % Plt Count (150-450) k/uL Neutrophils % % Lymphocytes % % Monocytes % % Eosinophils % % Basophils % % Neutrophils # (1.3-7.7) k/uL Lymphocytes # (1.0-4.8) k/uL Monocytes # (0-1.0) k/uL Eosinophils # (0-0.7) k/uL Basophils # (0-0.2) k/uL Sodium (137-145) mmol/L Potassium (3.5-5.1) mmol/L Chloride (98-107) mmol/L Carbon Dioxide (22-30) mmol/L Anion Gap mmol/L BUN (7-17) mg/dL Creatinine (0.52-1.04) mg/dL Est GFR (CKD-EPI)AfAm (>60 ml/min/1.73 sqM) Est GFR (CKD-EPI)NonAf (>60 ml/min/1.73 sqM) Glucose (74-99) mg/dL Plasma Lactic Acid Connor (0.7-2.0) mmol/L Calcium (8.4-10.2) mg/dL Magnesium (1.6-2.3) mg/dL Total Bilirubin (0.2-1.3) mg/dL AST (14-36) U/L ALT (9-52) U/L Alkaline Phosphatase (38-126) U/L Total Protein (6.3-8.2) g/dL Albumin (3.5-5.0) g/dL Urine Color Urine Appearance (Clear) Urine pH (5.0-8.0) Ur Specific [place] (1.001-1.035) Urine Protein (Negative) Urine Glucose (UA) (Negative) Urine Ketones (Negative) Urine Blood (Negative) Urine Nitrite (Negative) Urine Bilirubin (Negative) Urine Urobilinogen (<2.0) mg/dL Ur Leukocyte Esterase (Negative) Urine RBC (0-5) /hpf Urine WBC (0-5) /hpf Ur Squamous Epith Cells (0-4) /hpf Urine Bacteria (None) /hpf Hyaline Casts (0-2) /lpf Urine Mucus (None) /hpf Urine HCG, Qual (Not Detectd) Influenza Type A RNA (Not Detectd) Influenza Type B (PCR) (Not Detectd) Group A Strep Rapid Negative (Negative) Disposition Clinical Impression: Fever Disposition: HOME SELF-CARE Condition: Good Instructions: Fever in Adults (ED) Prescriptions: Sulfamethox-Tmp 800-160Mg [Bactrim Ds] 1 each PO Q12HR #6 tab Is patient prescribed a controlled substance at d/c from ED?: No Referrals: Israel Mccollum MD [Primary Care Provider] - 1-2 days
[2018-03-08 01:05] LABS: Basophils % (A) 0 %; Eosinophils # (A) 0.1 k/uL (0-0.7); Eosinophils % (A) 1 %; HGB 13.5 gm/dL (11.4-16.0); Lymphocytes # (A) 0.6 k/uL (1.0-4.8); Lymphocytes % (A) 7 %; MCH 27.7 pg (25.0-35.0); MCHC 33.8 g/dL (31.0-37.0); MCV 81.9 fL (80.0-100.0); Mean Platelet Volume 7.1; Monocytes # (A) 0.7 k/uL (0-1.0); Monocytes % (A) 8 %; Neutrophils # (A) 8.1 k/uL (1.3-7.7); Neutrophils % (A) 84 %; Platelet Count 246 k/uL (150-450); RBC 4.89 m/uL (3.80-5.40); RDW 12.8 % (11.5-15.5); WBC 9.6 k/uL (3.8-10.6)
[2018-03-08 01:18] LABS: Appearance,Urine Clear (Clear); Bacteria,Urine Many /hpf; Bilirubin,Urine Negative (Negative); Blood,Urine Negative (Negative); Color,Urine Yellow; Glucose,Urine (UA) Negative (Negative); Hyaline Casts,Urine 1 /lpf (0-2); Ketones,Urine Trace (Negative); Leukocyte Esterase,Urine Trace (Negative); Mucus,Urine Rare /hpf; Nitrite,Urine Negative (Negative); Protein,Urine 1+ (Negative); RBC,Urine 2 /hpf (0-5); Specific Gravity,Urine 1.027 (1.001-1.035); Squamous Epithelial Cell,Urine 5 /hpf (0-4); Urobilinogen,Urine <2.0 mg/dL (<2.0); WBC,Urine 2 /hpf (0-5)
[2018-03-08 01:25] LABS: Albumin 4.3 g/dL (3.5-5.0); Calcium 9.5 mg/dL (8.4-10.2); Magnesium 1.5 mg/dL (1.6-2.3); Potassium 3.9 mmol/L (3.5-5.1); Total Bilirubin 0.7 mg/dL (0.2-1.3); Total Protein 6.4 g/dL (6.3-8.2)
--- NOTE | 2018-03-08 02:00 | XR ---
EXAMINATION TYPE: XR chest 2V DATE OF EXAM: 03/08/2018 COMPARISON: 06/28/2017 HISTORY: Headache TECHNIQUE: Frontal and lateral views of the chest are obtained. FINDINGS: Heart and mediastinum are normal. Lungs are clear. Diaphragm is normal. Bony thorax is int act. IMPRESSION: Normal chest. No change.
[2018-03-08] MEDS ORDERED: SULFAMETHOX-TMP 800-160MG 1 EACH TAB PO STA (02:31)
[2018-03-08 02:53] VITALS: BP 133/78; PULSE 88; RESP 16; TEMP 100.3
== END 2018-03-08 02:52 | disposition home or self-care (01) ==
LOC: EC 00:12
DX: R50.9 Fever, unspecified (principal); R00.0 Tachycardia, unspecified; R19.00 Intra-abdominal and pelvic swelling, mass and lump, unspecified site; M54.9 Dorsalgia, unspecified; R51 Headache; R10.9 Unspecified abdominal pain; M31.0 Hypersensitivity angiitis; Z79.52 Long term (current) use of systemic steroids; Z79.899 Other long term (current) drug therapy; Z88.0 Allergy status to penicillin; Z88.1 Allergy status to other antibiotic agents; Z94.0 Kidney transplant status; Z82.49 Family history of ischemic heart disease and other diseases of the circulatory system
CPT/HCPCS: 36415; 71046; 80053; 81001; 81025; 83605; 83735; 85025; 87040; 87081; 87430; 87502; 96360; 99284